=== PATIENT | male | born 1950 | race Caucasian/White ===

== ENCOUNTER 2018-03-11 06:59 | Day surgery (SDC) | payer BC ==
[2018-03-11] MEDS ORDERED: LR 1,000 ML IV ONE (08:40)
--- NOTE | 2018-03-11 09:00 | PDGENHP ---
History & Physical Chief Complaint: Positive stool for occult blood History of Present Illness: Positive stool for occult blood Pertinent Past, Social, Family History: DM. ITP. FH: neg for colon cancer. SH : No ETOH. Relevant Physical Exam: NAD. CTA B/L. RRR without m/r/g. GI: Abd soft. NT/ ND. NABS. No Ascites Cardiorespiratory Assessment: ASA III. Colonoscopy with MAC
[2018-03-11] MEDS ORDERED: MIDAZOLAM 2 MG/2 ML VIAL IVP ONE (09:03)
[2018-03-11] MEDS ORDERED: fentaNYL 100 MCG/2 ML INJ IVP PRN (09:05)
[2018-03-11] MEDS ORDERED: LR 500 ML IV PRN (09:05)
[2018-03-11] MEDS ORDERED: ONDANSETRON 4 MG/2 ML VIAL IVP PRN (09:05)
[2018-03-11] MEDS ORDERED: PROMETHAZINE HCL 25 MG/ML INJ IVP PRN (09:05)
[2018-03-11] MEDS ORDERED: NALOXONE HCL 0.4 MG/ML INJ IVP PRN (09:05)
--- NOTE | 2018-03-11 09:05 | PDANEPAE ---
ANE Past Medical History - Cardiovascular History Hx Hypertension: Yes Hx Arrhythmias: No Hx Chest Pain: No Hx Coronary Artery / Peripheral Vascular Disease: No Hx CHF / Valvular Disease: No Hx Palpitations: No - Pulmonary History Hx COPD: No Hx Asthma/Reactive Airway Disease: Yes Hx Recent Upper Respiratory Infection: No Hx Oxygen in Use at Home: No Hx Sleep Apnea: No Sleep Apnea Screening Result - Last Documented: Positive Pulmonary History Comment: enviromental allergens can trigger asthma - Neurologic History Hx Cerebrovascular Accident: No Hx Seizures: No Hx Dementia: No - Endocrine History Hx Diabetes: Yes Endocrine History Comment: type 11 IDDM - Renal History Hx Renal Disorders: No - Liver History Hx Hepatic Disorders: Yes Hepatic History Comment: FATTY LIVER - Neurological & Psychiatric Hx Hx Neurological and Psychiatric Disorders: Yes Neurological / Psychiatric History Comment: 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 LOW PLATELET COUNT - Chronic Pain History Chronic Pain: Yes (RIGHT KNEE) - Surgical History Prior Surgeries: none ANE Review of Systems Review of Systems: - Exercise capacity METS (RN): 4 METS ANE Patient History - Allergies Allergies/Adverse Reactions: tree nut [Nuts] Allergy (Intermediate, Verified 03/11/18 08:21) Other-Enter Comments - Home Medications Home Medications: Acetaminophen Pm Caplet 02/22/18 [Last Taken 03/09/18] Amitriptyline HCl 02/22/18 [Last Taken 03/09/18] Ascorbic Acid 02/22/18 [Last Taken 03/04/18] Danazol 02/22/18 [Last Taken 03/10/18 10:30] Glipizide 02/22/18 [Last Taken 03/10/18 22:00] Levemir Flextouch 02/22/18 [Last Taken 03/09/18] Levothyroxine Sodium 02/22/18 [Last Taken 03/10/18] Lisinopril 02/22/18 [Last Taken 03/10/18] Metformin HCl 02/22/18 [Last Taken 03/09/18] Metoprolol Succinate 02/22/18 [Last Taken 03/10/18] Multivitamin (*) 02/22/18 [Last Taken 03/04/18] Simvastatin 02/22/18 [Last Taken 03/10/18] - NPO status NPO Since - Liquids (Date): 03/10/18 NPO Since - Liquids (Time): 22:30 NPO Since - Solids (Date): 03/10/18 NPO Since - Solids (Time): 09:00 - Anes Hx Anes Hx: no prior problems - Smoking Hx Smoking Status: Current some day smoker - Family Anes Hx Family Hx Anesthesia Complications: none ANE Labs/Vital Signs - Vital Signs Blood Pressure: 140/72 Heart Rate: 56 Respiratory Rate: 16 O2 Sat (%): 94 Height: 177.8 cm Weight: 113.398 kg ANE Physical Exam - Airway Neck exam: FROM Mallampati Score: Class 2 Mouth exam: poor dentition (Loose lower front teeth) - Pulmonary Pulmonary: no respiratory distress, no rales or rhonchi, clear to auscultation - Cardiovascular Cardiovascular: regular rate and rhythym, no murmur, rub, or gallop - ASA Status ASA Status: III ANE Anesthesia Plan Anesthesia Plan: GA with mask
[2018-03-11] MEDS ORDERED: PROPOFOL 200 MG/20 ML VIAL ONE ×2 (09:10→09:25)
--- NOTE | 2018-03-11 09:54 | GIREPORT ---
[facility] Surgical Services - Endoscopy Department Patient Name: Rajinder Zheng Procedure Date: 03/11/2018 8:52 AM Patient Type: Outpatient Attending / ER Physician: Jose Antonio Beltran MD Procedure: Colonoscopy Indications: Positive fecal immunochemical test Providers: Jose Antonio Beltran MD Medicines: Propofol per Anesthesia Complications: No immediate complications. Description of Procedure: After obtaining informed consent, the scope was passed under direct vis ion. Throughout the procedure, the patient's blood pressure, pulse, and oxyg en saturations were monitored continuously. The Colonoscope with irrigatio n channel was introduced through the anus and advanced to the cecum, identified by appendiceal orifice and ileocecal valve. The colonoscopy was performed without difficulty. The patient tolerated the procedure well. The quality of the bowel preparation was excellent. The ileocecal valve, appendiceal orifice, and rectum were photographed. Findings: The digital rectal exam findings include non-thrombosed external hemorrhoids. Pertinent negatives include normal sphincter tone, no palp able rectal lesions and normal prostate (size, shape, and consistency). Two sessile polyps were found in the cecum. The polyps were 6 to 8 mm i n size. These polyps were removed with a cold snare. Resection and retrie brenda were complete. Two sessile polyps were found in the ascending colon. The polyps were 4 to 5 mm in size. These polyps were removed with a cold biopsy forceps. Resec tion and retrieval were complete. A 5 mm polyp was found in the proximal descending colon. The polyp was sessile. The polyp was removed with a cold biopsy forceps. Resection an d retrieval were complete. A 25 mm polyp was found in the recto-sigmoid colon. The polyp was semi-pedunculated. The polyp was removed with a hot snare. Resection an d retrieval were complete. To prevent bleeding after the polypectomy, thr ee hemostatic clips were successfully placed (MR conditional). There was n o bleeding at the end of the procedure. Estimated Blood Loss: Estimated blood loss: none. Post Op Diagnosis: - Non-thrombosed external hemorrhoids found on digital rectal exam. - Two 6 to 8 mm polyps in the cecum, removed with a cold snare. Resecte d and retrieved. - Two 4 to 5 mm polyps in the ascending colon, removed with a cold biop sy forceps. Resected and retrieved. - One 5 mm polyp in the proximal descending colon, removed with a cold biopsy forceps. Resected and retrieved. - One 25 mm polyp at the recto-sigmoid colon, removed with a hot snare. Resected and retrieved. Clips (MR conditional) were placed. Recommendation: - Await pathology results. - Perform a flexible sigmoidoscopy to review polypectomy site in 8 week s. - Repeat colonoscopy in 1 year for surveillance. - Resume previous diet. - Continue present medications. - No aspirin, ibuprofen, naproxen, or other non-steroidal anti-inflamma tory drugs for 2 weeks after polyp removal. - Repeat CBC tomorrow to assess for platelet level and adjust to keep platelets above 30K. Dr. Marcano aware and will follow and monitor/manage for me. - Thank you for allowing me to be involved in the care of your patient. Attending Participation: I personally performed the entire procedure without the assistance of a fellow, resident or surg ical molding line assistant. Jose Antonio Beltran MD Jose Antonio Beltran MD 03/11/2018 9:54:12 AM This report has been signed electronicallyDavieri Beltran MD Number of Addenda: 0 Note Initiated On: 03/11/2018 8:52 AM Total Procedure Duration Time 0 hours 28 minutes 54 seconds [email or web address]
--- NOTE | 2018-03-11 10:09 | POSTANESTH ---
Post Anesthetic Evaluation Cardiovascular Status: Normal, Stable, Similar to Pre-Op Cond Respiratory Status: Normal, Stable, Similar to Pre-op Cond. Level of Consciousness/Mental Status: Can Participate in Eval, Alert and Oriented Pain Control: Adequate, Prn Tx Ordered Nausea/Vomiting Control: Adequate, Prn Tx Ordered Complications Possibly Related to Anesthesia: None Noted
[2018-03-11 11:17] VITALS: BP 126/66
== END 2018-03-11 11:36 | disposition home or self-care (01) ==
LOC: FSGY 06:59
PROVIDERS: ATTEND Internal Medicine Gastroenterology
PROC: 0DBN8ZX Excision of Sigmoid Colon, Via Natural or Artificial Opening Endoscopic, Diagnostic (ICD-10-PCS; principal; 2018-03-11 09:00)
PROC: 0DBK8ZX Excision of Ascending Colon, Via Natural or Artificial Opening Endoscopic, Diagnostic (ICD-10-PCS; principal; 2018-03-11 09:00)
PROC: 0DBH8ZX Excision of Cecum, Via Natural or Artificial Opening Endoscopic, Diagnostic (ICD-10-PCS; principal; 2018-03-11 09:00)
PROC: 0DBM8ZX Excision of Descending Colon, Via Natural or Artificial Opening Endoscopic, Diagnostic (ICD-10-PCS; principal; 2018-03-11 09:00)
DX: D12.0 Benign neoplasm of cecum (principal); D12.2 Benign neoplasm of ascending colon; D12.4 Benign neoplasm of descending colon; D12.5 Benign neoplasm of sigmoid colon; K64.8 Other hemorrhoids; R19.5 Other fecal abnormalities; D69.3 Immune thrombocytopenic purpura; E11.9 Type 2 diabetes mellitus without complications; I10 Essential (primary) hypertension
CPT/HCPCS: J2704

== ENCOUNTER 2019-01-05 17:17 | Inpatient (IN) | payer BC ==
[2019-01-05] MEDS ORDERED: ACETAMINOPHEN 325 MG TAB PO ONE (17:30)
[2019-01-05] MEDS ORDERED: diphenhydrAMINE 25 MG CAP PO ONE (17:30)
[2019-01-05] MEDS ORDERED: ONDANSETRON 4 MG/2 ML VIAL IVP PRN (17:51)
[2019-01-05] MEDS ORDERED: ONDANSETRON DISINTEGRATING 4 MG TAB PO PRN (17:51)
[2019-01-05] MEDS ORDERED: ACETAMINOPHEN 325 MG TAB PO PRN (17:51)
--- NOTE | 2019-01-05 17:59 | PDGENHP ---
History and Physical - Chief Complaint Low Platelets - History of Present Illness Rajinder Zheng is a 68 yo M with a PMHx of HTN, hypothyroidism, DM, ITP who presents to [facility] as direct admit from [facility] for thrombocytopenia. I spoke with his primary oncologist, Dr. Marcano, who reports he has been following this patient for sometime for ITP and he has been well controlled on Danazol. Labs were checked today which showed platelets that were undetectable. History Information - Allergies/Home Medication List Allergies/Adverse Reactions: tree nut [Nuts] Allergy (Intermediate, Verified 03/11/18 08:21) Other-Enter Comments Home Medications: Acetaminophen [Tylenol ES 500 mg (*)] 1,000 mg PO Q6 PRN 02/22/18 [Last Taken ] Amitriptyline HCl 25 - 50 mg PO HS 02/22/18 [Last Taken 01/04/19 50mg] Ascorbic Acid [Vitamin C 250 mg (*)] 250 mg PO DAILY 02/22/18 [Last Taken ] Insulin Detemir [Levemir Flextouch] 18 unit SQ HS 02/22/18 [Last Taken 01/04/19] Levothyroxine [Synthroid 88 mcg (*)] 88 mcg PO DAILY 02/22/18 [Last Taken ] Lisinopril [Zestril 40 mg (*)] 40 mg PO DAILY 02/22/18 [Last Taken 01/05/19] Metoprolol Succinate 200 mg PO HS 02/22/18 [Last Taken 01/04/19] Multivitamins [Multivitamin (*)] 1 each PO DAILY 02/22/18 [Last Taken 01/05/19] glipiZIDE [Glipizide] 10 mg PO DAILY@08 02/22/18 [Last Taken 01/05/19] metFORMIN HCL [Metformin HCl] 500 mg PO BID 02/22/18 [Last Taken 01/05/19] Acetamn/Diphenhydramine 500/25 [Tylenol PM (*)] 2 - 4 tab PO HS 01/05/19 [Last Taken 01/04/19 2 tabs] Danazol 600 mg PO DAILY 01/05/19 [Last Taken 01/04/19] [place]-3 Fatty Acids [Fish Oil 1000 mg (*)] 1,000 mg PO DAILY 01/05/19 [Last Taken 01/05/19] amLODIPine BESYLATE [Norvasc 5 mg (*)] 5 mg PO HS 01/05/19 [Last Taken 01/04/19] glipiZIDE [Glipizide] 5 mg PO DAILY@18 01/05/19 [Last Taken 01/04/19] I have personally reviewed and updated: family history, medical history, social history, surgical history - Past Medical History diabetes type 2, hypertension - Surgical History Reports: no pertinent surgical hx - Social History Smoking Status: Current some day smoker Review of Systems Review of Systems: ROS: 10pt was reviewed & negative except for what was stated in HPI & below Physical Exam Physical Exam: Temp Pulse Resp BP Pulse Ox 36.7 C 39 L 18 150/68 H 92 01/05/19 17:29 01/05/19 17:29 01/05/19 17:29 01/05/19 17:29 01/05/19 17:29 Constitutional: no apparent distress Eyes: PERRL Ears, Nose, Mouth, Throat: moist mucous membranes Cardiovascular: regular rate and rhythym Respiratory: no respiratory distress Gastrointestinal: soft, non-tender abdomen Skin: warm Musculoskeletal: full muscle strength Neurologic: AAOx3 Psychiatric: interacting appropriately Lab Data & Imaging Review 01/05/19 19:14 Assessment & Plan Assessment: ITP/Thrombocytopenia - Follows with Dr. Marcano of [facility], was doing well on Danazol previously - Platelets noted to be <3 on CBC today - Directly admitted to receive IVIG this evening 1gm/kg, ordered by oncology, pretreated with Benadryl and Tylenol - Will repeat CBC in the AM Hyperkalemia - K 6.2 on labs from today, repeat 6.1 - On Lisinopril at home, will hold - Ordered EKG to evaluate for changes, telemetry showing likely peaked T waves - Will give IVF, 30 gm Kayexylate, Insulin 10 units/D50, Ca gluconate - Will closely monitor K, next levels at 12 PM, 6 AM SUNSHINE on CKD - Cr 1.7 on labs today, baseline appears 1.3 -1.5 - Holding DEMARCO-i as above - IVF as above - Repeat Cr in the AM T2DM - Continue home Levemir and Glipizide - Holding home Metformin - Order SSI if needed Hypothyroidism - Continue home Synthroid HLD - Continue home statin FEN: IVF, Regular DVT PPx; Holding in setting of platelets <50 Code: FULL Dispo: Admit to Observation
[2019-01-05] MEDS ORDERED: IMMUNE GLOBULIN 20 GM/200 ML VIAL IV ONE (18:30)
[2019-01-05] MEDS ORDERED: IMMUNE GLOBULIN 10 GM/100 ML VIAL IV ONE (18:30)
[2019-01-05] MEDS ORDERED: CALCIUM GLUCONATE 2 GM in D5W 50 ML IV ONE (18:36)
[2019-01-05] MEDS ORDERED: INSULIN REGULAR HUMAN 100 UNIT/ML UNIT IVP ONE ×2 (18:37→21:45)
[2019-01-05] MEDS ORDERED: D50W 25 GM/50 ML SYR IVP ONE ×2 (18:37→21:45)
[2019-01-05] MEDS ORDERED: SODIUM POLY SULF 15 GM/60 ML BOTTLE PO ONE (18:37)
[2019-01-05] MEDS: NS 1,000 ML IV SCH (19:25)
[2019-01-05] MEDS: AMITRIPTYLINE HCL 25 MG TAB PO SCH (21:48)
[2019-01-05] MEDS: METOPROLOL SUCCINATE XR 100 MG TAB PO SCH (21:55)
[2019-01-06] MEDS: amLODIPine BESYLATE 5 MG TAB PO SCH ×2 (00:50→20:19)
[2019-01-06] MEDS: INSULIN GLARGINE 100 UNITS/ML UNIT SC SCH ×2 (00:51→20:12)
[2019-01-06] MEDS: NS 1,000 ML IV SCH ×2 (02:52→12:58)
[2019-01-06 04:44] LABS: PLATELET COUNT 19 10^3/uL (150-400)
[2019-01-06] MEDS: ACETAMN/DIPHENHYDRAMINE 500/25MG TAB PO SCH ×2 (06:04→20:13)
[2019-01-06] MEDS ORDERED: glipiZIDE 5 MG TAB PO SCH ×2 (08:00→18:00)
--- NOTE | 2019-01-06 08:07 | CPEKG ---
Test Reason : OPEN Blood Pressure : / mmHG Vent. Rate : 046 BPM Atrial Rate : 045 BPM P-R Int : 208 ms QRS Dur : 099 ms QT Int : 443 ms P-R-T Axes : 043 065 032 degrees QTc Int : 388 ms Sinus bradycardia Artifact Confirmed by Michael Kate ([id number]) on 01/06/2019 8:07:03 AM Referred By: Isai Tobin Confirmed By:Michael Kate
[2019-01-06] MEDS ORDERED: DANAZOL PO SCH (09:00)
[2019-01-06] MEDS: LEVOTHYROXINE 88 MCG TAB PO SCH (10:08)
--- NOTE | 2019-01-06 14:34 | ASMTCMCOM ---
CM Note CM Note Notes: Pt is a 68 y/o man admitted for thrombocytopenia. Pt will most likely d/c independent when medically stable. No therapies ordered at this time. CM available for changes. Plan: Independent Date Signed: 01/06/2019 02:33 PM Electronically Signed By:TRENA Hurst
--- NOTE | 2019-01-06 17:51 | HOSPPROG ---
Hospitalist Progress Note Assessment/Plan: ITP/Thrombocytopenia - Follows with Dr. Marcano of [facility], was doing well on Danazol previously but was told to stop taking it. - Platelets noted to be <3 on admission - recieved IVIG last night. platelets up to 19 today - Will repeat CBC in the AM Hyperkalemia- resolved with fluids, kayexalate, insulin, dextrose and calcium gluconate. - On Lisinopril at home, will hold - repeat K in am SUNSHINE on CKD - Cr 1.6 on labs today, baseline appears 1.3 -1.5 - Holding DEMARCO-i as above - IVF as above - Repeat Cr in the AM T2DM - Continue home Levemir and Glipizide - Holding home Metformin - Order SSI if needed Hypothyroidism - Continue home Synthroid HLD - Continue home statin FEN: IVF, Regular DVT PPx; Holding in setting of platelets <50 Code: FULL Dispo: change to inpatient, possible dc in am if platelets remain stable. Subjective: feels fine. Objective: Vital Signs Temp Pulse Resp BP Pulse Ox 36.6 C 64 21 H 138/64 H 90 L 01/06/19 17:03 01/06/19 17:03 01/06/19 17:03 01/06/19 17:03 01/06/19 17:03 Laboratory Results 01/06/19 03:32 01/06/19 03:32 01/05/19 01/06/19 01/07/19 05:59 05:59 05:59 Intake Total 1600 1080 Balance 1600 1080 - Physical Exam Constitutional: no apparent distress, appears nourished, not in pain Eyes: PERRL, anicteric sclera, EOMI Ears, Nose, Mouth, Throat: moist mucous membranes, hearing normal, ears appear normal, no oral mucosal ulcers Cardiovascular: regular rate and rhythym, no murmur, rub, or gallop Respiratory: no respiratory distress, no rales or rhonchi, clear to auscultation Gastrointestinal: normoactive bowel sounds, soft, non-tender abdomen, no palpable masses Genitourinary: no bladder fullness, no bladder tenderness, no renal bruits Skin: no rashes or abrasions, no fluctuance, no induration Musculoskeletal: full muscle strength, no muscle tenderness, normal joint ROM Neurologic: AAOx3, sensation intact bilaterally Psychiatric: interacting appropriately, not anxious, not encephalopathic, thought process linear Lymph, Heme, Immunologic: no cervical LAD, no supraclavicular LAD ICD10 Worksheet Patient Problems: Problems Problem Status Onset Thrombocytopenia Acute - ICD10 Problem Qualifiers (1) Thrombocytopenia
[2019-01-06] MEDS: METOPROLOL SUCCINATE XR 100 MG TAB PO SCH (20:14)
[2019-01-06] MEDS: AMITRIPTYLINE HCL 25 MG TAB PO SCH (20:19)
[2019-01-07 04:53] LABS: PLATELET COUNT 4 10^3/uL (150-400)
[2019-01-07] MEDS: LEVOTHYROXINE 88 MCG TAB PO SCH (09:45)
[2019-01-07] MEDS ORDERED: DEXAMETHASONE 4 MG TAB PO SCH (12:30)
[2019-01-07] MEDS ORDERED: HYDROCORTISONE 100 MG/2 ML VIAL IVP PRN (13:20)
[2019-01-07] MEDS ORDERED: MEPERIDINE 25 MG/ML SYR IVP PRN (13:20)
[2019-01-07] MEDS ORDERED: DEXAMETHASONE 10 MG/ML VIAL IVP PRN (13:20)
[2019-01-07] MEDS ORDERED: NS 500 ML IV PRN (13:20)
[2019-01-07] MEDS ORDERED: ACETAMINOPHEN 325 MG TAB PO PRN (13:20)
[2019-01-07] MEDS ORDERED: EPINEPHrine 1 MG/ML INJ IM PRN (13:20)
[2019-01-07] MEDS ORDERED: NS 1,000 ML IV PRN (13:20)
[2019-01-07] MEDS ORDERED: ACETAMINOPHEN 325 MG TAB PO ONE (14:00)
[2019-01-07] MEDS ORDERED: NS IV ONE (14:30)
[2019-01-07] MEDS ORDERED: RITUXIMAB IV ONE (14:30)
--- NOTE | 2019-01-07 14:57 | HOSPPROG ---
Hospitalist Progress Note Assessment/Plan: ITP/Thrombocytopenia - Follows with Dr. Marcano of [facility], was doing well on Danazol previously but was told to stop taking it. admitted to receive IVIG for platelet count less than 3. Platelets jumped to 19 with IVIG yesterday but this morning down to 4. -oncology consulted, who is recommending rituxan today, with dexamethasone. -start Nplate next week, then 2nd dose of rituxan next week. - Will repeat CBC in the AM Hyperkalemia- resolved with fluids, kayexalate, insulin, dextrose and calcium gluconate. - On Lisinopril at home, will hold - repeat K in am SUNSHINE on CKD - back to baseline after fluids. cont to monitor - Holding DEMARCO-i as above - IVF as above - Repeat Cr in the AM T2DM - Continue home Levemir and Glipizide - Holding home Metformin - Order SSI if needed Hypothyroidism - Continue home Synthroid HLD - Continue home statin FEN: IVF, Regular DVT PPx; Holding in setting of platelets <50 Code: FULL Dispo: change to inpatient, possible dc in am if platelets remain stable. Subjective: no pain, does have some bruising, but feels fine. Objective: Vital Signs Temp Pulse Resp BP Pulse Ox 36.7 C 48 L 15 164/68 H 100 01/07/19 08:00 01/07/19 11:45 01/07/19 11:45 01/07/19 11:45 01/07/19 11:45 Laboratory Results 01/07/19 03:54 01/07/19 03:54 01/06/19 01/07/19 01/08/19 05:59 05:59 05:59 Intake Total 1600 3507 375 Balance 1600 3507 375 - Physical Exam Constitutional: no apparent distress, appears nourished, not in pain Eyes: PERRL, anicteric sclera, EOMI Ears, Nose, Mouth, Throat: moist mucous membranes, hearing normal, ears appear normal, no oral mucosal ulcers Cardiovascular: regular rate and rhythym, no murmur, rub, or gallop Respiratory: no respiratory distress, no rales or rhonchi, clear to auscultation Gastrointestinal: normoactive bowel sounds, soft, non-tender abdomen, no palpable masses Genitourinary: no bladder fullness, no bladder tenderness, no renal bruits Skin: other (bruises throughout extremities. ) Musculoskeletal: full muscle strength, no muscle tenderness, normal joint ROM Neurologic: AAOx3, sensation intact bilaterally Psychiatric: interacting appropriately, not anxious, not encephalopathic, thought process linear Lymph, Heme, Immunologic: no cervical LAD, no supraclavicular LAD ICD10 Worksheet Patient Problems: Problems Problem Status Onset Thrombocytopenia Acute - ICD10 Problem Qualifiers (1) Thrombocytopenia
--- NOTE | 2019-01-07 15:34 | PDMN ---
Medical Necessity Medical necessity: MCG: GRG hematology: thrombocytopenia- 68 yo M pt presents as direct admit from [facility] with PLT undetectable( <3 ) PMHx: HTN, hypothyroidism, DM, ITP, - Hyperkalemia (6.20) SUNSHINE Cr ( 1.7) - EKG on admit - pt given IVIG plt up to 19 - but decreased again to 4- status changed to INPT 01/07 for ongoing med nec. further monitoring, eval and tx needed. pt to receive Rituxan today with dexamethasone repeat labs in am -
--- NOTE | 2019-01-07 18:54 | PDCONSULT ---
Radiographer Cardiac Catheterization Note: Patient is a 68-year-old male with a history of ITP who presents to the hospital with grade 4 thrombocytopenia. Patient has a known history of ITP. He was diagnosed with ITP 08/2013. He had brief responses to steroids and no response to IVIG. He received rituximab in November 2013 as well as January 2015 with a partial response. He had a normal bone marrow biopsy in September 2013. He has met with a surgeon in the past regarding splenectomy and is undergone the appropriate immunizations. He was started on danazol in January 2018 which he was on until recently with a good response in terms of platelet count. He saw Dr. Marcano on 01/05/2019 again on at that time he is on 600 mg of danazol. At that visit he was found to have a platelet count that was undetectable. He was admitted and given 1 g/kg of IVIG with a platelet response up to 14,000 however the following day his platelet count was 4000 and hematology was consulted for management. Patient currently denies any bleeding. He denies fevers chills or drenching night sweats. He denies any palpable lumps or bumps. He was negative for hepatitis B in 2013 Past medical history: Hypertension Diabetes Resected melanoma Hypothyroidism Past surgical history: Wide local excision of melanoma in 1994 Social history: Patient report reports smoking cigarettes off and on for "years" - patient cannot be more specific. Patient does have a history of drug use in particular speed and marijuana. He has not used IV drugs. Patient also has a history of heavy alcohol use in the past. Family history: Sister with breast cancer Mother with ITP Review of systems: A complete 12 point review of systems is obtained and found to be negative unless indicated in history of present illness Physical examination: General: No acute distress appearing nontoxic male HEENT: Pupils equal round reactive to light no scleral icterus or conjunctival pallor is appreciated oral mucosa is moist without any oral pharyngeal lesions however the patient does have poor dentition. Neck: Supple Cardiovascular: Regular in rate and rhythm without rubs thrills gallops or murmurs Chest: Clear to auscultation percussion bilateral posterior lungs Abdomen: Soft nontender nondistended with a palpable spleen tip on deep inspiration Extremities: Warm and well-perfused, no edema good peripheral pulses Neurologic: Alert and oriented x3, cranial nerves II through XII grossly intact Temp Pulse Resp BP Pulse Ox 36.9 C 52 L 20 153/69 H 87 L 02/22/19 18:36 01/07/19 18:36 01/07/19 18:36 01/07/19 18:36 01/07/19 18:36 O2 (L/minute) 2 Generic Name Dose Route Start Last Admin Trade Name Leatha PRN Reason Stop Dose Admin Acetaminophen 650 mg 01/05/19 17:51 Tylenol PO 07/04/19 17:50 Q4HRS PRN Pain, Mild/Fever, Can Take PO Acetaminophen/Diphenhydramine HCl 2 each 01/05/19 21:00 01/06/19 20:13 Tylenol Pm PO 07/04/19 20:59 2 each HS MAYI Administration Amitriptyline HCl 25 mg 01/05/19 21:00 01/06/19 20:19 Elavil PO 07/04/19 20:59 25 mg HS MAYI Administration Amlodipine Besylate 5 mg 01/05/19 21:00 01/06/19 20:19 Norvasc PO 07/04/19 20:59 5 mg HS MAYI Administration Dexamethasone 40 mg 01/07/19 12:30 01/07/19 16:28 Decadron PO 07/06/19 12:29 40 mg DAILY MAYI Administration Sodium Chloride 1,000 mls @ 125 mls/hr 01/05/19 18:15 01/06/19 12:58 Ns IV 07/04/19 18:14 1,000 mls CONT MAYI Administration Insulin Glargine 18 units 01/05/19 21:00 01/06/19 20:12 Lantus Syringe SC 07/04/19 20:59 18 units HS MAYI Administration Levothyroxine Sodium 88 mcg 01/06/19 09:00 01/07/19 09:45 Synthroid PO 07/05/19 08:59 88 mcg DAILY MAYI Administration Metoprolol Succinate 200 mg 01/05/19 21:00 01/06/19 20:14 Toprol Xl PO 07/04/19 20:59 200 mg HS MAYI Administration Ondansetron HCl 4 mg 01/05/19 17:51 Zofran IVP 07/04/19 17:50 Q4HRS PRN Nausea/Vomiting, Can't Take PO Ondansetron HCl 4 mg 01/05/19 17:51 Zofran Odt PO 07/04/19 17:50 Q4HRS PRN Nausea/Vomiting, Use 1st Assessment and plan: Patient is a 68-year-old male with a history of known ITP who is been controlled for roughly the past year on danazol admitted for grade 4 thrombocytopenia with undetectable platelets with incomplete and brief response to IVIG for which hematology was consulted for ongoing recommendations. Problem #1chronic primary ITP As mentioned patient has still failed steroids in the past and has had a partial response to rituximab. For the past year or so he has been somewhat controlled on danazol with a platelet count over 30,000. Unknown the trigger for which he subsequently lost his response. In the meantime we will plan on treating him with 40 mg of dexamethasone for 4 days while giving rituximab 375 mg/m weekly chance to work. Discussed side effects including anxiety and insomnia increasing of his blood sugars as well as viral reactivation and very rarely progressive multifocal local encephalopathy. 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 Recommend daily CBC And close glucose monitoring.
[2019-01-07] MEDS: AMITRIPTYLINE HCL 25 MG TAB PO SCH (21:36)
[2019-01-07] MEDS: amLODIPine BESYLATE 5 MG TAB PO SCH (21:36)
[2019-01-07] MEDS: ACETAMN/DIPHENHYDRAMINE 500/25MG TAB PO SCH (21:51)
[2019-01-07] MEDS: METOPROLOL SUCCINATE XR 100 MG TAB PO SCH (21:51)
[2019-01-07] MEDS: INSULIN GLARGINE 100 UNITS/ML UNIT SC SCH (21:52)
[2019-01-08] MEDS: NS 1,000 ML IV SCH ×2 (00:40→12:26)
[2019-01-08 05:19] LABS: PLATELET COUNT 3 10^3/uL (150-400)
[2019-01-08] MEDS: ACETAMINOPHEN 325 MG TAB PO SCH (11:20)
[2019-01-08] MEDS: diphenhydrAMINE 25 MG CAP PO SCH (11:20)
[2019-01-08] MEDS: IMMUNE GLOBULIN 10 GM/100 ML VIAL IV SCH (11:21)
[2019-01-08] MEDS ORDERED: SODIUM POLY SULF 15 GM/60 ML BOTTLE PO ONE (11:36)
[2019-01-08] MEDS ORDERED: D50W 25 GM/50 ML SYR IVP PRN (11:37)
--- NOTE | 2019-01-08 11:37 | SOAPPROG ---
SOMARLINE Progress Note Assessment/Plan: Assessment: Rajinder is a 68 yo male with history of ITP. 1. ITP: He has received IVIG and rituximab inpatient. Was started on dexamethasone as well yesterday. Given plt count of 3, I would recommend further IVIG and a platelet transfusion later today. They had discussed TPO mimetics as well for next week. Weekly rituximab might take some time to work so one consideration would be to finish out 3 more doses. -I have ordered IVIG and plt transfusion for today. -Continue dexamethasone. 2. Diabetes: Will need to watch this closely with the dex. 01/08/19 11:35 Subjective: Feeling well this am. No significant bleeding symptoms. He does have easy bruising. No headaches, epistaxis, melena, hematochezia or any other complaints. Objective: Vital Signs Temp Pulse Resp BP Pulse Ox 36.6 C 49 L 19 156/68 H 92 01/08/19 10:58 01/08/19 10:58 01/08/19 10:58 01/08/19 10:58 01/08/19 10:58 Laboratory Results 01/08/19 04:56 01/08/19 04:56 01/07/19 01/08/19 01/09/19 05:59 05:59 05:59 Intake Total 3507 2475 Balance 3507 2475 General: Pleasant, nad HEENT: OP clear, EOMi Pulm: CTAB CV: RRR no m/g/r Abd: S/nt/nd/bs+ no hsm Ext: Bruising noted. ICD10 Worksheet Patient Problems: Problems Problem Status Onset Thrombocytopenia Acute
[2019-01-08] MEDS: LEVOTHYROXINE 88 MCG TAB PO SCH (12:08)
[2019-01-08] MEDS: INSULIN LISPRO 100 UNIT/ML SC SCH ×2 (12:09→18:10)
[2019-01-08] MEDS: DEXAMETHASONE 4 MG TAB PO SCH (13:15)
--- NOTE | 2019-01-08 13:32 | HOSPPROG ---
Hospitalist Progress Note Assessment/Plan: 68 yo M with hx of ITP and chronic thrombocytopenia as well as DM2 presenting with critical thrombocytopenia # critical thrombocytopenia/ITP: has been followed by Dr. Marcano and was previously stable on Danazol with plts typically around 30k, now plts < 3. Has received IVIG, dexamethasone and rituximab since admission without improvement. Appreciated oncology input, repeat IVIG and platelet transfusion planned for today, consider NPlate on Thursday if continues to have minimal response. Patient has not had splenectomy though this has been considered in the past. # Hyperkalemia- initially resolved with fluids, kayexalate, insulin, dextrose and calcium gluconate but now slightly trending up again, will repeat kayexalate and continue to trend # anemia: lower than his basline but essentially stable since arrival, no e/o bleeding currently, will continue to monitor, high risk given above # karina on ckd: holding gracie i, at baseline now s/p IVF # DM2: patient on metformin, glipizide and detemir at home--oral agents have been held since arrival, glucose trending up due to steroids likely, will add SSI and resume glipizide, his oral intake has been good # hypothyroid: continue synthroid # HLD: continue statin # IP status, high risk with critically low platelets # FC Patient new to my care. Old records reviewed and summarized as above. Care plan reviewed with oncology as above. Subjective: no significant overnight events, patient with many questions about his treatment plan but no complaints this am Objective: Vital Signs Temp Pulse Resp BP Pulse Ox 36.6 C 49 L 16 146/64 H 94 01/08/19 12:27 01/08/19 13:04 01/08/19 13:04 01/08/19 13:04 01/08/19 13:04 Laboratory Results 01/08/19 04:56 01/08/19 04:56 01/07/19 01/08/19 01/09/19 05:59 05:59 05:59 Intake Total 3507 2475 Balance 3507 2475 awake alert nad anicteric op clear rrr no mrg cta b soft nt nd no cce warm dry well perfused oriented appropriate - Time Spent With Patient Time Spent with Patient: greater than 35 minutes Time Spent with Patient: Greater than 35 minutes spent on this patients care, greater than 50% of time spent counseling, educating, and coordinating care regarding the above mentioned plan. ICD10 Worksheet Patient Problems: Problems Problem Status Onset Thrombocytopenia Acute
[2019-01-08] MEDS: IMMUNE GLOBULIN 20 GM/200 ML VIAL IV SCH (13:43)
[2019-01-08] MEDS: METOPROLOL SUCCINATE XR 100 MG TAB PO SCH (21:03)
[2019-01-08] MEDS: INSULIN GLARGINE 100 UNITS/ML UNIT SC SCH (21:03)
[2019-01-08] MEDS: amLODIPine BESYLATE 5 MG TAB PO SCH (21:04)
[2019-01-08] MEDS: ACETAMN/DIPHENHYDRAMINE 500/25MG TAB PO SCH (21:05)
[2019-01-08] MEDS: AMITRIPTYLINE HCL 25 MG TAB PO SCH (21:05)
[2019-01-09] MEDS ORDERED: INSULIN LISPRO 100 UNIT/ML SC ONE ×2 (02:46→05:27)
[2019-01-09 05:17] LABS: PLATELET COUNT 7 10^3/uL (150-400)
[2019-01-09] MEDS: INSULIN LISPRO 100 UNIT/ML SC SCH ×3 (08:27→18:01)
[2019-01-09] MEDS: glipiZIDE 10 MG TAB PO SCH (08:28)
[2019-01-09] MEDS: LEVOTHYROXINE 88 MCG TAB PO SCH (08:28)
[2019-01-09] MEDS: INSULIN GLARGINE 100 UNITS/ML UNIT SC SCH ×2 (10:45→20:28)
--- NOTE | 2019-01-09 11:19 | SOAPPROG ---
SOAP Progress Note Assessment/Plan: Assessment: Rajinder is a 68 yo male with history of ITP. 1. ITP: He has received IVIG and rituximab inpatient. He is also on high dose dexamethasone today being day 3. Plt count went up to 7 after IVIG and platelet transfusion. I would see where he trends tomorrow. If he improves then he could be discharged and receive Nplate as outpatient at [facility]. If he is still less than 10 he might need to stay inpatient and have it ordered. However, it might also be reasonable to complete weekly rituximab as well. -IVIG today -Continue dexamethasone. 2. Diabetes: Lantus being increased today. I did group therapy counselor him on avoiding high carbohydrate foods. 3. Bradycardia: Stable. 01/09/19 11:17 Subjective: He tolerated plt transfusion well without any issues. No bleeding issues today. Feels well overall. Objective: Vital Signs Temp Pulse Resp BP Pulse Ox 36.6 C 53 L 15 144/70 H 95 01/09/19 07:23 01/09/19 07:23 01/09/19 07:23 01/09/19 07:23 01/09/19 07:23 Laboratory Results 01/09/19 04:38 01/09/19 04:38 01/08/19 01/09/19 01/10/19 05:59 05:59 05:59 Intake Total 8665 1880 Balance 4755 1880 General: Pleasant, conversant, NAD Pulm: CTAB CV: RRR Abdomen: S/nt/nd/bs+ Ext: No c/c/e Psych: Appropriate affect Neuro: Moving all ext equally ICD10 Worksheet Patient Problems: Problems Problem Status Onset Thrombocytopenia Acute
[2019-01-09] MEDS: diphenhydrAMINE 25 MG CAP PO SCH (11:27)
[2019-01-09] MEDS: DEXAMETHASONE 4 MG TAB PO SCH (11:28)
[2019-01-09] MEDS: ACETAMINOPHEN 325 MG TAB PO SCH (11:28)
[2019-01-09] MEDS: IMMUNE GLOBULIN 20 GM/200 ML VIAL IV SCH (12:06)
[2019-01-09] MEDS: IMMUNE GLOBULIN 10 GM/100 ML VIAL IV SCH (12:08)
--- NOTE | 2019-01-09 14:42 | ASMTCMCOM ---
CM Note CM Note Notes: Chart reviewed. Patient independent and has no identified needs at this time. CM available should needs arise. Plan: Dc to home no needs. Date Signed: 01/09/2019 02:42 PM Electronically Signed By:Razia Leavitt RN
--- NOTE | 2019-01-09 16:14 | HOSPPROG ---
Hospitalist Progress Note Assessment/Plan: 68 yo M with hx of ITP and chronic thrombocytopenia as well as DM2 presenting with critical thrombocytopenia # critical thrombocytopenia/ITP: has been followed by Dr. Marcano and was previously stable on Danazol with plts typically around 30k, on arrival plts < 3. Has received IVIG, dexamethasone, rituximab and platelet transfusion since admission with some improvement. Consideration for Nplate in am if continues to have minimal response to current tx # Hyperkalemia- initially resolved with fluids, kayexalate, insulin, dextrose and calcium gluconate, continue to monitor, kayexalate prn # anemia: lower than his basline but essentially stable since arrival, no e/o bleeding currently, will continue to monitor, high risk given above # karina on ckd: holding gracie i, at baseline now s/p IVF # DM2: patient on metformin, glipizide and detemir at home--oral agents have been held since arrival, glucose trending up due to steroids likely, will add SSI and resume glipizide, his oral intake has been good # hypothyroid: continue synthroid # HLD: continue statin # IP status, high risk with critically low platelets # FC Subjective: no significant overnight events, patient continues to feel well, he has no signs of bleeding Objective: Vital Signs Temp Pulse Resp BP Pulse Ox 36.7 C 57 L 15 154/74 H 92 01/09/19 15:57 01/09/19 15:57 01/09/19 15:57 01/09/19 15:57 01/09/19 15:57 Laboratory Results 01/09/19 04:38 01/09/19 04:38 01/08/19 01/09/19 01/10/19 05:59 05:59 05:59 Intake Total 2475 1880 Balance 2475 1880 awake alert nad anicteric op clear rrr no mrg cta b soft nt nd no cce warm dry well perfused oriented appropriate - Time Spent With Patient Time Spent with Patient: greater than 35 minutes Time Spent with Patient: Greater than 35 minutes spent on this patients care, greater than 50% of time spent counseling, educating, and coordinating care regarding the above mentioned plan. ICD10 Worksheet Patient Problems: Problems Problem Status Onset Thrombocytopenia Acute
[2019-01-09] MEDS: METOPROLOL SUCCINATE XR 100 MG TAB PO SCH (20:25)
[2019-01-09] MEDS: amLODIPine BESYLATE 5 MG TAB PO SCH (20:25)
[2019-01-09] MEDS: AMITRIPTYLINE HCL 25 MG TAB PO SCH (20:26)
[2019-01-09] MEDS: ACETAMN/DIPHENHYDRAMINE 500/25MG TAB PO SCH (20:26)
[2019-01-10 05:06] LABS: PLATELET COUNT 33 10^3/uL (150-400)
[2019-01-10] MEDS: LEVOTHYROXINE 88 MCG TAB PO SCH (08:04)
[2019-01-10] MEDS: glipiZIDE 10 MG TAB PO SCH (08:04)
[2019-01-10] MEDS: INSULIN LISPRO 100 UNIT/ML SC SCH (08:05)
[2019-01-10 08:11] VITALS: BP 168/78
--- NOTE | 2019-01-10 08:50 | HOSPPROG ---
Hospitalist Progress Note Assessment/Plan: 68 yo M with hx of ITP and chronic thrombocytopenia as well as DM2 presenting with critical thrombocytopenia critical thrombocytopenia/ITP: has been followed by Dr. Marcano and was previously stable on Danazol with plts typically around 30k, on arrival plts < 3. Has received IVIG, dexamethasone, rituximab and platelet transfusion since admission with some improvement. Consideration for Nplate in am if continues to have minimal response to current tx complete 3rd day dex to onc clinic for Nplate Hyperkalemia- initially resolved with fluids, kayexalate, insulin, dextrose and calcium gluconate, continue to monitor, kayexalate prn anemia: lower than his basline but essentially stable since arrival, no e/o bleeding currently, will continue to monitor, high risk given above karina on ckd: holding gracie i, at baseline now s/p IVF DM2: patient on metformin, glipizide and detemir at home--oral agents have been held since arrival, glucose trending up due to steroids likely, will add SSI and resume glipizide, his oral intake has been good states he has been on insulin for 4 years and does not check blood sugars at home enouraged rere to get glucometer and d/w pcp hypothyroid: continue synthroid HLD: continue statin IP status, high risk with critically low platelets FC home today > 30 minutes Subjective: platelets 33k! case d/w dr ramirez Objective: Vital Signs Temp Pulse Resp BP Pulse Ox 36.6 C 52 L 14 168/78 H 100 01/10/19 08:00 01/10/19 08:00 01/10/19 08:00 01/10/19 08:00 01/10/19 08:00 Laboratory Results 01/10/19 04:44 01/10/19 04:44 01/09/19 01/10/19 01/11/19 05:59 05:59 05:59 Intake Total 1879 1455 Balance 1880 1455 - Physical Exam Constitutional: no apparent distress, appears nourished Eyes: PERRL, anicteric sclera Ears, Nose, Mouth, Throat: moist mucous membranes, hearing normal Cardiovascular: regular rate and rhythym, no murmur, rub, or gallop Respiratory: no respiratory distress, no rales or rhonchi Gastrointestinal: normoactive bowel sounds Genitourinary: no bladder fullness, No knapp in urethra Skin: warm, normal color Musculoskeletal: full muscle strength ICD10 Worksheet Patient Problems: Problems Problem Status Onset Thrombocytopenia Acute
[2019-01-10] MEDS ORDERED: DEXAMETHASONE 4 MG TAB PO ONE (09:00)
[2019-01-10] MEDS: INSULIN GLARGINE 100 UNITS/ML UNIT SC SCH (09:02)
--- NOTE | 2019-01-10 09:12 | ASMTLACE ---
LACE Length of stay for Answers: 2 days current admission Comorbidities - select Answers: Diabetes (uncontrolled or all that apply controlled) Other Notes: HTN; Hypothyroid # of Emergency department Answers: 0 visits in the last 6 months Social determinants Answers: History of substance abuse (ETOH, street drugs, prescription drugs, etc.) Score: 7 Date Signed: 01/10/2019 09:11 AM Electronically Signed By:Razia Leavitt RN
--- NOTE | 2019-01-10 09:14 | ASMTDCNOTE ---
Case Management Discharge Discharge Order Complete? Answers: Yes Patient to Obtain Answers: Independently Medications Transportation Arranged Answers: Family/Friends Family Notified Answers: Yes Discharge Comments Notes: Patient medically cleared fro discharge to home no current needs but CM available should needs arise. Date Signed: 01/10/2019 09:13 AM Electronically Signed By:Razia Leavitt RN
--- NOTE | 2019-01-10 12:11 | GDS ---
[f rep st] DISCHARGE SUMMARY Please see admission history and physical by Dr. Isai Tobin. The patient presented as an elective a dmission from Oncology Clinic. The patient has a history of ITP, and he had undetectable platelets. He was referred for admission. He received high-dose dexamethasone. He is maintained on danazol as an outpatient. His platelets rocio to 33,000 today. He is discharged [facility]. The patient has not had evidence of bleeding while here. Notably, the patient has been hyperglycemic while here. He has type 2 diabetes, on insulin. Supplemental insulin was added. When I discussed this further with him, the patient notes that he does not check his blood sugars at home. He has bee n on insulin for quite a few years. I recommended obtaining a [employer] glucometer. He does work at [employer] He is following up with his primary care physician in [place]. ADDITIONAL DISCHARGE DIAGNOSES: Type 2 diabetes. Acute kidney injury, now resolved. Hyperkalemia, now resolved. Hyperglycemia. /[id number]/MODL
== END 2019-01-10 09:53 | disposition home or self-care (01) | DRG 813 ==
LOC: F1N 17:24 → INTOOBSV 17:24 → F2W 20:30 → OBSVTOIN 01-07 15:10 → F1N 01-07 15:40
PROVIDERS: ADMIT Internal Medicine; ATTEND Internal Medicine
DX: D69.3 Immune thrombocytopenic purpura (principal); E10.65 Type 1 diabetes mellitus with hyperglycemia; N17.9 Acute kidney failure, unspecified; I12.9 Hypertensive chronic kidney disease with stage 1 through stage 4 chronic kidney disease, or unspecified chronic kidney disease; N18.9 Chronic kidney disease, unspecified; E03.9 Hypothyroidism, unspecified; E87.5 Hyperkalemia; E78.5 Hyperlipidemia, unspecified; F17.210 Nicotine dependence, cigarettes, uncomplicated; Z79.4 Long term (current) use of insulin; Z85.820 Personal history of malignant melanoma of skin
CPT/HCPCS: G0378; J0610; J1200; J1459; J1815; J2175; J9312; P9035